=== PATIENT | male | born 1985 | race Two or more races ===

== ENCOUNTER 2016-12-10 21:54 | Emergency (ER) | payer MEDICAID ==
[~2016-12-10] VITALS: Ht 185.4 cm; Wt 95.3 kg
[2016-12-10] MEDS ORDERED: Norco 5mg/325mg tab ORAL ONE (22:30)
[2016-12-10 23:35] VITALS: BP 134/87
[2016-12-10] MEDS ORDERED: IBUPROFEN600 MG ORAL (23:44)
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
[2016-12-10 23:55] VITALS: BP 134/87
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
== END 2016-12-10 23:55 | disposition home or self-care (01) ==
LOC: EMR 22:29
DX: S09.90XA Unspecified injury of head, initial encounter (principal); S39.012A Strain of muscle, fascia and tendon of lower back, initial encounter; V43.62XA Car passenger injured in collision with other type car in traffic accident, initial encounter; Y92.410 Unspecified street and highway as the place of occurrence of the external cause; Y99.8 Other external cause status
CPT/HCPCS: 70450; 72070; 99284